=== PATIENT | female | born 1955 | race Caucasian/White ===

== ENCOUNTER 2024-04-02 20:58 | Inpatient (IN) | payer OTHER ==
[~2024-04-02] VITALS: Ht 175.3 cm; Wt 89.9 kg
[2024-04-02 20:30] VITALS: BP 139/85; PULSE 92; RESP 18; TEMP 97.8; O2SAT 98
[2024-04-02] MEDS ORDERED: LOPERAMIDE HCL 2 MG CAPSULE PO PRN (22:00)
[2024-04-02] MEDS ORDERED: NICOTINE 14 MG/24 HOUR PATCH TD PRN (22:00)
[2024-04-02] MEDS ORDERED: ONDANSETRON 4 MG TABLET PO PRN (22:00)
[2024-04-02] MEDS ORDERED: MAGNESIUM HYDROXIDE SUSPENSION 30 ML UDCUP PO PRN (22:00)
[2024-04-02] MEDS ORDERED: MAG HYDROX/ALUMINUM HYD/SIMETH ES 30 ML SUSPENSION UDCUP PO PRN (22:00)
[2024-04-02] MEDS ORDERED: CloNIDine HCL 0.1 MG TABLET PO PRN (22:00)
[2024-04-02] MEDS ORDERED: PETROLATUM,WHITE 28 GM JELLY TP PRN (22:00)
[2024-04-02] MEDS ORDERED: ALBUTEROL SULFATE HFA 90 MCG/PUFF 8 GM INHALER IH PRN (22:00)
[2024-04-02] MEDS ORDERED: IBUPROFEN 400 MG TABLET PO PRN (22:00)
[2024-04-03] MEDS: ZOLPIDEM TARTRATE 10 MG TABLET PO PRN (00:10)
[2024-04-03 08:16] LABS: BASOPHILS % (AUTO) 0.6 % (0.0-2.0); EOSINOPHILS % (AUTO) 4.1 % (1.0-6.0); HEMATOCRIT 26.8 % (36-46); HEMOGLOBIN 8.9 g/dL (12.0-16.0); LYMPHOCYTES # (AUTO) 1.9 K/uL (1.0-4.8); LYMPHOCYTES % (AUTO) 33.4 % (22.0-44.0); MEAN CORPUSCULAR HEMOGLOBIN 26.5 pg (26.0-34.0); MEAN CORPUSCULAR HGB CONC 33.1 G/dL (31.0-37.0); MEAN CORPUSCULAR VOLUME 80 fL (80-100); MONOCYTES # (AUTO) 0.6 K/uL (0.1-1.0); MONOCYTES % (AUTO) 10.2 % (2.0-9.0); NEUTROPHILS # (AUTO) 2.9 K/uL (1.8-7.7); NEUTROPHILS % (AUTO) 51.7 % (40.0-70.0); PLATELET COUNT (AUTO) 394 K/uL (150-450); RED BLOOD CELL COUNT(AUTO) 3.35 MIL/uL (4.00-5.20); RED CELL DISTRIBUTION WIDTH 16.1 % (11.5-14.5); WHITE BLOOD COUNT (AUTO) 5.7 K/uL (4.5-11.0)
[2024-04-03 08:31] LABS: ALANINE AMINOTRANSFERASE 18 U/L (12-78); ALBUMIN 2.6 g/dL (3.4-5.0); ALKALINE PHOSPHATASE 102 U/L (46-116); ANION GAP 11 mmol/L (8-16); ASPARTATE AMINOTRANSFERASE 14 U/L (15-37); BILIRUBIN,TOTAL 0.2 mg/dL (0.1-1.0); CALCIUM, TOTAL 8.3 mg/dL (8.8-10.5); CARBON DIOXIDE 22 mmol/L (22-29); CHLORIDE 107 mmol/L (98-107); CREATININE 0.77 mg/dL (0.60-1.30); GLOMERULAR FILTR. RATE CALC > 60 mL/min (>60); GLUCOSE,RANDOM 100 mg/dL (70-110); POTASSIUM 3.9 mmol/L (3.5-5.1); SODIUM SERUM 140 mmol/L (136-145); THYROID STIMULATING HORMONE 2.87 uIU/mL (0.36-3.74); TOTAL PROTEIN, SERUM 6.3 g/dL (6.4-8.2); UREA NITROGEN, BLOOD 18 mg/dL (7-18)
[2024-04-03 08:35] LABS: FREE T4 (FREE THYROXINE) 0.75 ng/dL (0.76-1.46); T4 (THYROXINE) 4.5 mcg/dL (4.7-13.3)
[2024-04-03 08:47] LABS: CHOL/HDL RATIO 3.7 (3.9-5.7)
[2024-04-03] MEDS: ATORVASTATIN CALCIUM 20 MG TABLET PO SCH (10:36)
[2024-04-03] MEDS: CHOLECALCIFEROL (VIT D3) 2,000 UNITS [50 MCG] TABLET PO SCH (10:37)
[2024-04-03] MEDS: VENLAFAXINE HCL 150 MG ER CAPSULE PO SCH (13:34)
[2024-04-03] MEDS: LORazepam 2 MG TABLET PO PRN (13:34)
[2024-04-03] MEDS: RisperiDONE 1 MG TABLET PO SCH (13:34)
[2024-04-03 20:19] VITALS: BP 103/70; PULSE 92; RESP 18; TEMP 98; O2SAT 98
[2024-04-03] MEDS: MIRTAZAPINE 30 MG TABLET PO SCH (21:54)
[2024-04-03] MEDS: TraZODone HCL 50 MG TABLET PO PRN (21:55)
[2024-04-04] MEDS: LANSOPRAZOLE 30 MG CAPSULE PO SCH (06:49)
[2024-04-04 08:32] VITALS: BP 119/70; PULSE 87; RESP 18; TEMP 97.7; O2SAT 98
[2024-04-04] MEDS: ETHYL ALCOHOL 62% ANTISEPTIC NASAL SANITIZER 0.6 ML AMPUL NASAL SCH (13:24)
[2024-04-04 20:40] VITALS: BP 103/71; PULSE 96; RESP 18; TEMP 98; O2SAT 98
[2024-04-05 09:06] VITALS: BP 100/65; PULSE 90; RESP 18; TEMP 97.8; O2SAT 98
[2024-04-05 09:19] VITALS: BP 100/65; PULSE 90; RESP 18; TEMP 97.8; O2SAT 98
[2024-04-05 20:03] VITALS: BP 119/72; PULSE 108; RESP 18; TEMP 97.9; O2SAT 98
[2024-04-06 08:51] VITALS: BP 139/70; PULSE 90; RESP 17; TEMP 98; O2SAT 96
[2024-04-06] MEDS: HALOPERIDOL 5 MG TABLET PO PRN (12:40)
[2024-04-06 21:34] VITALS: RESP 18
[2024-04-06] MEDS: GuaiFENesin/D-METHORPHAN [SUGAR-FREE] 200-20MG/10 ML SYRUP UDCUP PO PRN (22:53)
[2024-04-07 09:02] VITALS: BP 101/60; PULSE 96; RESP 16; TEMP 97.5; O2SAT 96
[2024-04-07 20:20] VITALS: BP 120/74; PULSE 100; RESP 18; TEMP 97.6
[2024-04-08 10:04] VITALS: BP 123/77; PULSE 91; RESP 18; TEMP 98; O2SAT 95
[2024-04-08 16:14] LABS: COVID AG,FIA SOURCE NASAL SWAB
[2024-04-08 17:10] LABS: SARS-COV2 (COVID) ANTIGEN,FIA Positive (Negative)
[2024-04-08] MEDS ORDERED: BENZONATATE 100 MG CAPSULE PO PRN (20:30)
[2024-04-08 20:35] VITALS: BP 134/95; PULSE 104; RESP 19; TEMP 100.3; O2SAT 98
[2024-04-08 21:17] LABS: BASOPHILS % (AUTO) 0.5 % (0.0-2.0); EOSINOPHILS % (AUTO) 0.6 % (1.0-6.0); HEMOGLOBIN 7.8 g/dL (12.0-16.0); LYMPHOCYTES # (AUTO) 1.3 K/uL (1.0-4.8); MEAN CORPUSCULAR HEMOGLOBIN 25.4 pg (26.0-34.0); MEAN CORPUSCULAR HGB CONC 32.5 G/dL (31.0-37.0); MEAN CORPUSCULAR VOLUME 78 fL (80-100); MONOCYTES # (AUTO) 0.6 K/uL (0.1-1.0); MONOCYTES % (AUTO) 8.7 % (2.0-9.0); NEUTROPHILS # (AUTO) 4.7 K/uL (1.8-7.7); NEUTROPHILS % (AUTO) 71.2 % (40.0-70.0); PLATELET COUNT (AUTO) 420 K/uL (150-450); RED BLOOD CELL COUNT(AUTO) 3.08 MIL/uL (4.00-5.20); RED CELL DISTRIBUTION WIDTH 16.1 % (11.5-14.5); WHITE BLOOD COUNT (AUTO) 6.6 K/uL (4.5-11.0)
[2024-04-08 21:31] LABS: % IRON SATURATION 6.5 % (22-44)
[2024-04-08 21:51] LABS: ANION GAP 10 mmol/L (8-16); CALCIUM, TOTAL 8.1 mg/dL (8.8-10.5); CARBON DIOXIDE 24 mmol/L (22-29); CHLORIDE 101 mmol/L (98-107); CREATININE 0.74 mg/dL (0.60-1.30); GLOMERULAR FILTR. RATE CALC > 60 mL/min (>60); GLUCOSE,RANDOM 108 mg/dL (70-110); SODIUM SERUM 135 mmol/L (136-145); UREA NITROGEN, BLOOD 14 mg/dL (7-18)
[2024-04-08 21:52] LABS: ALANINE AMINOTRANSFERASE 16 U/L (12-78); ALBUMIN 2.6 g/dL (3.4-5.0); ALKALINE PHOSPHATASE 103 U/L (46-116); ASPARTATE AMINOTRANSFERASE 12 U/L (15-37); BILIRUBIN,TOTAL 0.2 mg/dL (0.1-1.0); C-REACTIVE PROTEIN QUANT 3.59 mg/dL (0.00-0.30); FERRITIN 11 ng/mL (8-252); LACTATE DEHYDROGENASE 134 U/L (81-234); TOTAL PROTEIN, SERUM 6.4 g/dL (6.4-8.2)
[2024-04-08] MEDS: ACETAMINOPHEN 325 MG TABLET PO PRN (21:53)
[2024-04-08] MEDS: MELATONIN 3 MG TABLET PO ONE (23:46)
[2024-04-09 00:05] VITALS: BP 114/74; PULSE 85; RESP 16; TEMP 98.9; O2SAT 92
[2024-04-09] MEDS: REMDESIVIR 200 MG in SODIUM CHLORIDE 0.9% 250 ML IV ONE (01:42)
[2024-04-09 04:05] VITALS: BP 112/74; PULSE 85; RESP 18; TEMP 98.1; O2SAT 97
[2024-04-09 08:38] VITALS: BP 114/69; PULSE 88; RESP 20; TEMP 99.9; O2SAT 97
[2024-04-09] MEDS: DOCUSATE SODIUM 100 MG CAPSULE PO PRN (12:01)
[2024-04-09 16:06] LABS: BASOPHILS % (AUTO) 0.6 % (0.0-2.0); EOSINOPHILS % (AUTO) 1.7 % (1.0-6.0); HEMATOCRIT 26.8 % (36-46); HEMOGLOBIN 8.6 g/dL (12.0-16.0); LYMPHOCYTES # (AUTO) 1.5 K/uL (1.0-4.8); LYMPHOCYTES % (AUTO) 29.5 % (22.0-44.0); MEAN CORPUSCULAR HEMOGLOBIN 25.3 pg (26.0-34.0); MEAN CORPUSCULAR HGB CONC 31.9 G/dL (31.0-37.0); MEAN CORPUSCULAR VOLUME 79 fL (80-100); MONOCYTES # (AUTO) 0.6 K/uL (0.1-1.0); MONOCYTES % (AUTO) 11.7 % (2.0-9.0); NEUTROPHILS # (AUTO) 2.9 K/uL (1.8-7.7); NEUTROPHILS % (AUTO) 56.5 % (40.0-70.0); PLATELET COUNT (AUTO) 398 K/uL (150-450); RED BLOOD CELL COUNT(AUTO) 3.39 MIL/uL (4.00-5.20); RED CELL DISTRIBUTION WIDTH 16.7 % (11.5-14.5); WHITE BLOOD COUNT (AUTO) 5.2 K/uL (4.5-11.0)
[2024-04-09 16:10] VITALS: BP 120/72; PULSE 80; RESP 20; TEMP 98.9; O2SAT 99
[2024-04-09 16:34] LABS: ALANINE AMINOTRANSFERASE 17 U/L (12-78); ALBUMIN 2.6 g/dL (3.4-5.0); ALKALINE PHOSPHATASE 109 U/L (46-116); ANION GAP 12 mmol/L (8-16); ASPARTATE AMINOTRANSFERASE 15 U/L (15-37); BILIRUBIN,TOTAL 0.2 mg/dL (0.1-1.0); C-REACTIVE PROTEIN QUANT 6.31 mg/dL (0.00-0.30); CALCIUM, TOTAL 8.6 mg/dL (8.8-10.5); CARBON DIOXIDE 24 mmol/L (22-29); CHLORIDE 104 mmol/L (98-107); CREATININE 0.91 mg/dL (0.60-1.30); FERRITIN 15 ng/mL (8-252); GLOMERULAR FILTR. RATE CALC > 60 mL/min (>60); GLUCOSE,RANDOM 96 mg/dL (70-110); POTASSIUM 4.2 mmol/L (3.5-5.1); SODIUM SERUM 140 mmol/L (136-145); TOTAL PROTEIN, SERUM 6.8 g/dL (6.4-8.2); UREA NITROGEN, BLOOD 16 mg/dL (7-18)
[2024-04-10] MEDS ORDERED: REMDESIVIR 100 MG in SODIUM CHLORIDE 0.9% 250 ML IV SCH (01:00)
== END 2024-04-09 20:32 | disposition short-term general hospital (02) | DRG 885 ==
LOC: 3EX 21:08 → 6S 04-08 19:06 → 4E 04-09 17:38 → UNDODISIN 04-09 18:10
PROVIDERS: ADMIT Psychiatry & Neurology Child & Adolescent Psychiatry; ATTEND Internal Medicine
PROC: GZHZZZZ Group Psychotherapy (ICD-10-PCS; principal; 2024-04-03)
PROC: GZ52ZZZ Individual Psychotherapy, Cognitive (ICD-10-PCS; 2024-04-03)
DX: F33.3 Major depressive disorder, recurrent, severe with psychotic symptoms (principal); J12.9 Viral pneumonia, unspecified; I10 Essential (primary) hypertension; E78.5 Hyperlipidemia, unspecified; E55.9 Vitamin D deficiency, unspecified; F41.9 Anxiety disorder, unspecified; G20.C Parkinsonism, unspecified; D64.9 Anemia, unspecified; Z88.0 Allergy status to penicillin; Z88.8 Allergy status to other drugs, medicaments and biological substances
CPT/HCPCS: 70450; 70551; 71045; 80053; 80061; 82728; 83036; 83540; 83550; 83615; 84145; 84436; 84439; 84443; 85025; 85045; 85379; 86140; 87081; 92526; 92610; 93005; G0378; J7050; 36415-L1; 36415-TC

== ENCOUNTER 2024-04-09 13:51 | Inpatient (IN) | payer OTHER ==
[2024-04-09 21:15] VITALS: BP 107/59; PULSE 95; RESP 18; TEMP 97.9; O2SAT 96
[2024-04-09] MEDS ORDERED: LOPERAMIDE HCL 2 MG CAPSULE PO PRN (21:45)
[2024-04-09] MEDS ORDERED: PETROLATUM,WHITE 28 GM JELLY TP PRN (21:45)
[2024-04-09] MEDS ORDERED: GuaiFENesin/D-METHORPHAN/PHENYLEPH 5 ML LIQUID ORAL.SYG PO PRN (21:45)
[2024-04-09] MEDS ORDERED: ONDANSETRON 4 MG TABLET PO PRN (21:45)
[2024-04-09] MEDS ORDERED: ALBUTEROL SULFATE HFA 90 MCG/PUFF 8 GM INHALER IH PRN (21:45)
[2024-04-09] MEDS ORDERED: CloNIDine HCL 0.1 MG TABLET PO PRN (21:45)
[2024-04-09] MEDS ORDERED: NICOTINE 14 MG/24 HOUR PATCH TD PRN (21:45)
[2024-04-09] MEDS ORDERED: MAGNESIUM HYDROXIDE SUSPENSION 30 ML UDCUP PO PRN (21:45)
[2024-04-09] MEDS ORDERED: TraZODone HCL 50 MG TABLET PO PRN (21:45)
[2024-04-09] MEDS ORDERED: HALOPERIDOL 5 MG TABLET PO PRN (21:45)
[2024-04-09] MEDS: MIRTAZAPINE 30 MG TABLET PO SCH (22:48)
[2024-04-09] MEDS: ETHYL ALCOHOL 62% ANTISEPTIC NASAL SANITIZER 0.6 ML AMPUL NASAL SCH (22:48)
[2024-04-09 23:46] VITALS: PULSE 82; RESP 18; O2SAT 95
[2024-04-10] MEDS ORDERED: SODIUM CHLORIDE 0.9% 500 ML IV ONE (01:35)
[2024-04-10] MEDS: REMDESIVIR 100 MG in SODIUM CHLORIDE 0.9% 250 ML IV SCH (01:42)
[2024-04-10] MEDS: BENZONATATE 100 MG CAPSULE PO PRN (01:54)
[2024-04-10] MEDS: ACETAMINOPHEN 325 MG TABLET PO PRN (01:54)
[2024-04-10] MEDS: LANSOPRAZOLE 30 MG CAPSULE PO SCH (05:25)
[2024-04-10 05:40] VITALS: BP 118/71; PULSE 85; RESP 18; TEMP 98.4; O2SAT 96
[2024-04-10 07:28] VITALS: BP 110/76; PULSE 79; RESP 18; TEMP 98.3; O2SAT 97
[2024-04-10 07:51] LABS: BASOPHILS % (AUTO) 0.4 % (0.0-2.0); EOSINOPHILS % (AUTO) 4.6 % (1.0-6.0); HEMOGLOBIN 8.6 g/dL (12.0-16.0); LYMPHOCYTES # (AUTO) 2.1 K/uL (1.0-4.8); LYMPHOCYTES % (AUTO) 51.9 % (22.0-44.0); MEAN CORPUSCULAR HEMOGLOBIN 25.2 pg (26.0-34.0); MEAN CORPUSCULAR HGB CONC 31.9 G/dL (31.0-37.0); MEAN CORPUSCULAR VOLUME 79 fL (80-100); MONOCYTES # (AUTO) 0.6 K/uL (0.1-1.0); MONOCYTES % (AUTO) 14.9 % (2.0-9.0); NEUTROPHILS # (AUTO) 1.1 K/uL (1.8-7.7); NEUTROPHILS % (AUTO) 28.2 % (40.0-70.0); PLATELET COUNT (AUTO) 395 K/uL (150-450); RED BLOOD CELL COUNT(AUTO) 3.41 MIL/uL (4.00-5.20); RED CELL DISTRIBUTION WIDTH 16.5 % (11.5-14.5)
[2024-04-10 08:16] LABS: ALANINE AMINOTRANSFERASE 18 U/L (12-78); ALBUMIN 2.6 g/dL (3.4-5.0); ALKALINE PHOSPHATASE 104 U/L (46-116); ANION GAP 11 mmol/L (8-16); ASPARTATE AMINOTRANSFERASE 16 U/L (15-37); BILIRUBIN,TOTAL 0.1 mg/dL (0.1-1.0); CALCIUM, TOTAL 8.3 mg/dL (8.8-10.5); CARBON DIOXIDE 24 mmol/L (22-29); CHLORIDE 106 mmol/L (98-107); CREATININE 0.79 mg/dL (0.60-1.30); FERRITIN 16 ng/mL (8-252); GLOMERULAR FILTR. RATE CALC > 60 mL/min (>60); GLUCOSE,RANDOM 88 mg/dL (70-110); POTASSIUM 3.9 mmol/L (3.5-5.1); SODIUM SERUM 141 mmol/L (136-145); TOTAL PROTEIN, SERUM 6.5 g/dL (6.4-8.2); UREA NITROGEN, BLOOD 15 mg/dL (7-18)
[2024-04-10] MEDS: RisperiDONE 1 MG TABLET PO SCH (09:31)
[2024-04-10] MEDS: ATORVASTATIN CALCIUM 20 MG TABLET PO SCH (09:31)
[2024-04-10] MEDS: VENLAFAXINE HCL 150 MG ER CAPSULE PO SCH (09:31)
[2024-04-10] MEDS: CHOLECALCIFEROL (VIT D3) 2,000 UNITS [50 MCG] TABLET PO SCH (09:32)
[2024-04-10] MEDS: DOCUSATE SODIUM 100 MG CAPSULE PO PRN (09:32)
[2024-04-10 15:28] VITALS: BP 121/79; PULSE 87; RESP 18; TEMP 98.2; O2SAT 97
[2024-04-10 19:25] VITALS: BP 122/70; PULSE 90; RESP 18; TEMP 98; O2SAT 95
[2024-04-11 03:48] VITALS: BP 148/97; PULSE 95; RESP 18; TEMP 97.6; O2SAT 97
[2024-04-11 07:16] LABS: EOSINOPHILS % (AUTO) 2.9 % (1.0-6.0); HEMATOCRIT 31.9 % (36-46); HEMOGLOBIN 10.1 g/dL (12.0-16.0); LYMPHOCYTES # (AUTO) 2.4 K/uL (1.0-4.8); LYMPHOCYTES % (AUTO) 46.3 % (22.0-44.0); MEAN CORPUSCULAR HEMOGLOBIN 25.3 pg (26.0-34.0); MEAN CORPUSCULAR HGB CONC 31.8 G/dL (31.0-37.0); MEAN CORPUSCULAR VOLUME 80 fL (80-100); MONOCYTES # (AUTO) 0.4 K/uL (0.1-1.0); MONOCYTES % (AUTO) 7.6 % (2.0-9.0); NEUTROPHILS # (AUTO) 2.2 K/uL (1.8-7.7); NEUTROPHILS % (AUTO) 42.2 % (40.0-70.0); PLATELET COUNT (AUTO) 378 K/uL (150-450); RED CELL DISTRIBUTION WIDTH 16.4 % (11.5-14.5); WHITE BLOOD COUNT (AUTO) 5.1 K/uL (4.5-11.0)
[2024-04-11 07:25] LABS: ALANINE AMINOTRANSFERASE 14 U/L (12-78); ALBUMIN 2.8 g/dL (3.4-5.0); ALKALINE PHOSPHATASE 113 U/L (46-116); ANION GAP 14 mmol/L (8-16); ASPARTATE AMINOTRANSFERASE 16 U/L (15-37); BILIRUBIN,TOTAL 0.2 mg/dL (0.1-1.0); C-REACTIVE PROTEIN QUANT 3.95 mg/dL (0.00-0.30); CALCIUM, TOTAL 9.1 mg/dL (8.8-10.5); CARBON DIOXIDE 23 mmol/L (22-29); CHLORIDE 105 mmol/L (98-107); CREATININE 0.77 mg/dL (0.60-1.30); GLOMERULAR FILTR. RATE CALC > 60 mL/min (>60); GLUCOSE,RANDOM 80 mg/dL (70-110); SODIUM SERUM 142 mmol/L (136-145); TOTAL PROTEIN, SERUM 7.3 g/dL (6.4-8.2); UREA NITROGEN, BLOOD 16 mg/dL (7-18)
[2024-04-11 07:44] VITALS: BP 128/72; PULSE 88; RESP 19; TEMP 98; O2SAT 97
[2024-04-11 17:08] VITALS: BP 124/72; PULSE 89; RESP 19; TEMP 98; O2SAT 98
[2024-04-11 19:31] VITALS: BP 118/73; PULSE 96; RESP 18; TEMP 98.5; O2SAT 96
[2024-04-12 06:01] VITALS: BP 118/74; PULSE 76; RESP 18; TEMP 98.1; O2SAT 100
[2024-04-12 06:58] LABS: BASOPHILS % (AUTO) 0.6 % (0.0-2.0); EOSINOPHILS % (AUTO) 2.8 % (1.0-6.0); HEMATOCRIT 32.7 % (36-46); HEMOGLOBIN 10.1 g/dL (12.0-16.0); LYMPHOCYTES # (AUTO) 2.4 K/uL (1.0-4.8); LYMPHOCYTES % (AUTO) 42.3 % (22.0-44.0); MEAN CORPUSCULAR HEMOGLOBIN 24.7 pg (26.0-34.0); MEAN CORPUSCULAR HGB CONC 30.9 G/dL (31.0-37.0); MEAN CORPUSCULAR VOLUME 80 fL (80-100); MONOCYTES # (AUTO) 0.5 K/uL (0.1-1.0); MONOCYTES % (AUTO) 8.2 % (2.0-9.0); NEUTROPHILS # (AUTO) 2.7 K/uL (1.8-7.7); NEUTROPHILS % (AUTO) 46.1 % (40.0-70.0); PLATELET COUNT (AUTO) 429 K/uL (150-450); RED BLOOD CELL COUNT(AUTO) 4.09 MIL/uL (4.00-5.20); RED CELL DISTRIBUTION WIDTH 16.7 % (11.5-14.5); WHITE BLOOD COUNT (AUTO) 5.8 K/uL (4.5-11.0)
[2024-04-12 07:19] LABS: ALANINE AMINOTRANSFERASE 17 U/L (12-78); ALBUMIN 2.9 g/dL (3.4-5.0); ALKALINE PHOSPHATASE 121 U/L (46-116); ANION GAP 12 mmol/L (8-16); ASPARTATE AMINOTRANSFERASE 14 U/L (15-37); BILIRUBIN,TOTAL 0.2 mg/dL (0.1-1.0); C-REACTIVE PROTEIN QUANT 2.48 mg/dL (0.00-0.30); CALCIUM, TOTAL 8.7 mg/dL (8.8-10.5); CARBON DIOXIDE 23 mmol/L (22-29); CHLORIDE 105 mmol/L (98-107); CREATININE 0.89 mg/dL (0.60-1.30); GLOMERULAR FILTR. RATE CALC > 60 mL/min (>60); GLUCOSE,RANDOM 99 mg/dL (70-110); POTASSIUM 4.4 mmol/L (3.5-5.1); SODIUM SERUM 140 mmol/L (136-145); TOTAL PROTEIN, SERUM 7.5 g/dL (6.4-8.2); UREA NITROGEN, BLOOD 16 mg/dL (7-18)
[2024-04-12 08:30] VITALS: BP 125/72; PULSE 71; RESP 18; TEMP 98; O2SAT 98
[2024-04-12 16:08] VITALS: BP 143/70; PULSE 90; RESP 18; TEMP 97.9; O2SAT 97
[2024-04-12] MEDS: LORazepam 2 MG TABLET PO PRN (16:49)
[2024-04-12 19:10] VITALS: BP 134/88; PULSE 104; RESP 18; TEMP 98.6; O2SAT 97
[2024-04-13] MEDS: MAG HYDROX/ALUMINUM HYD/SIMETH ES 30 ML SUSPENSION UDCUP PO PRN (00:36)
[2024-04-13 05:45] VITALS: BP 159/92; PULSE 83; RESP 18; TEMP 98.4; O2SAT 96
[2024-04-13 08:03] VITALS: BP 155/77; PULSE 86; RESP 20; TEMP 98.3; O2SAT 99
[2024-04-13 10:02] VITALS: BP 135/77; PULSE 82; RESP 18; TEMP 98.1; O2SAT 98
[2024-04-13 18:04] VITALS: BP_SYST 137; BP_DIAS 78; BP_DIAS 88; PULSE 94; RESP 18; TEMP 97.8; O2SAT 98
[2024-04-13 20:00] VITALS: BP 125/89; PULSE 95; RESP 18; TEMP 98.4; O2SAT 100
== END 2024-04-13 20:40 | disposition short-term general hospital (02) | DRG 177 ==
LOC: 4E 18:14
PROVIDERS: ADMIT Internal Medicine; ATTEND Internal Medicine
PROC: XW033E5 Introduction of Remdesivir Anti-infective into Peripheral Vein, Percutaneous Approach, New Technology Group 5 (ICD-10-PCS; principal; 2024-04-13)
DX: U07.1 COVID-19 (principal); J12.82 Pneumonia due to coronavirus disease 2019; J96.01 Acute respiratory failure with hypoxia; Z59.00 Homelessness unspecified; I10 Essential (primary) hypertension; D64.9 Anemia, unspecified; K21.9 Gastro-esophageal reflux disease without esophagitis; F32.A Depression, unspecified; G25.0 Essential tremor; Z88.0 Allergy status to penicillin; Z88.8 Allergy status to other drugs, medicaments and biological substances
CPT/HCPCS: 80053; 82271; 82728; 85025; 85379; 86140; 87635; 97116; 97162; 97167; 97530; 97535; G0378; J7040; J7050